=== PATIENT | male | born 1980 | race Caucasian/White ===

== ENCOUNTER 2017-12-18 17:58 | Emergency (ER) | payer OTHER ==
[~2017-12-18] VITALS: Ht 193 cm; Wt 161.5 kg
--- NOTE | 2017-12-18 18:27 | PHYS DOC ---
Adult General Chief Complaint Chief Complaint: LACERATION/AVULSION HPI HPI Patient is a 37 year old male who presents with complaint of laceration to the right thumb. The patient states that he was using a kitchen knife to cut cabbage when the accident occurred. Patient states that he cut into his thumb tip. Patient denies loss of function to the affected digit. Patient states that his tetanus booster has not been given in the last 5 years. Patient denies any significant health problems. Review of Systems Review of Systems Constitutional: Denies fever or chills [] Musculoskeletal: Laceration to left thumb tip[] Integument: Denies rash or skin lesions [] Neurologic: Denies headache, focal weakness or sensory changes [] All other systems were reviewed and found to be within normal limits, except as documented in this note. Allergies Allergies No known drug allergies Physical Exam Physical Exam Constitutional: Alert, afebrile, appears in mild discomfort. [] HENT: Normocephalic, atraumatic, bilateral external ears normal, oropharynx moist, no oral exudates, nose normal. [] Skin: Warm, dry, no erythema, no rash. [] Extremities: Curvilinear laceration through the lateral aspect of the right thumb tip extending through nail bed, no cyanosis, no clubbing, ROM intact, no edema. [] Neurologic: Alert and oriented X 3, normal motor function, normal sensory function, no focal deficits noted. [] Current Patient Data Vital Signs Vital Signs Date Time Temp Pulse Resp B/P (MAP) Pulse Ox O2 Delivery O2 Flow Rate FiO2 12/18/17 18:31 98.7 107 18 96 Room Air Lab Results Current Medications Medications (Trade) Dose Ordered Sig/Rafa Route PRN Reason Start Time Stop Time Status Last Admin Dose Admin Lidocaine HCl 20 ml 1X ONCE IJ 12/18/17 18:30 12/18/17 18:54 DC 12/18/17 18:47 Tetanus/ Diphtheria Toxoids Adsorbed (Tenivac Vial) 0.5 ml ONCE ONCE VAX IM 12/18/17 19:30 12/18/17 19:34 DC Diphtheria/ Tetanus/Acell Pertussis (Boostrix) 0.5 ml ONCE ONCE VAX IM 12/18/17 19:45 12/18/17 19:46 EKG EKG Not performed[] Radiology/Procedures Radiology/Procedures Not performed[] Course & Med Decision Making Course & Med Decision Making Pertinent Labs and Imaging studies reviewed. (See chart for details) The patient's laceration was repaired as outlined in the procedure note. Advised patient to follow-up in 10-14 days for reevaluation and removal of sutures. Advised that this could be done by the patient's primary doctor. Recommended return emergency department for any worsening symptoms. Patient voiced understanding and in agreement with treatment plan. Patient's tetanus was updated in the emergency department. Dragon Disclaimer Dragon Disclaimer This electronic medical record was generated, in whole or in part, using a voice recognition dictation system. Laceration Repair Lac Repair Indication: Thumb laceration Procedure: The patient was placed in the appropriate position and anesthesia around the laceration was achieved with injection of 2% lidocaine at the base of the thumb through digital block technique. The area was then irrigated copiously with tap water and prepped with Betadine. The laceration was closed using 4-0 Ethilon simple and a ruptured sutures. The wound area was then dressed with Telfa and Kerlix. Total repaired wound length: 3.5 cm. Other Items: Total suture count: 6 The patient tolerated the procedure without difficulty. Complications: None. Departure Departure: Impression: Primary Impression: Thumb laceration Patient Instructions: Fingertip Laceration Additional Instructions: Follow-up with your primary doctor in 10-14 days for removal of your sutures. Return to the emergency department for any worsening symptoms. Problem Qualifiers Primary Impression: Thumb laceration Encounter type: initial encounter Damage to nail status: with damage Foreign body presence: without foreign body Laterality: right Qualified Codes: S61.111A - Laceration without foreign body of right thumb with damage to nail, initial encounter SADAF JOSEPH MD Dec 18, 2017 18:27
[2017-12-18] MEDS ORDERED: LIDOCAINE 2% 20 ML VIAL. IJ ONE (18:30)
[2017-12-18] MEDS ORDERED: TETANUS AND DIPHTHERIA TOX/PF 0.5 ML VIAL. VAX IM ONE (19:30)
[2017-12-18] MEDS ORDERED: DIPHTH,PERTUSS(ACELL),TET TOX 0.5 ML DISP.SYRIN. VAX IM ONE (19:45)
[2017-12-18 20:00] VITALS: BP 173/70
== END 2017-12-18 20:00 | disposition home or self-care (01) ==
LOC: ER 17:58
DX: S61.011A Laceration without foreign body of right thumb without damage to nail, initial encounter (principal); W26.0XXA Contact with knife, initial encounter; Y93.89 Activity, other specified; Y99.8 Other external cause status; Y92.89 Other specified places as the place of occurrence of the external cause
CPT/HCPCS: 12002; 90471; 90715; 99283-25; J2001

== ENCOUNTER → 2018-08-24 | Outpatient (CLI) | payer SELFPAY ==
--- NOTE | 2018-08-24 14:16 | RAD ---
Left axillary ultrasound, 08/24/2018: HISTORY: Pain, left axillary lump The area of clinical concern in the left axilla was carefully scanned. There are streaky subcutaneous hypoechoic areas compatible with nonspecific edema. No discrete well-defined fluid collection or mass is identified. The appearance could be due to cellulitis or hemorrhage. Clinical correlation suggested. If symptoms persist, sonographic follow-up may be helpful in excluding abscess development. Electronically signed by: Nav Felder MD (08/24/2018 2:12 PM) [facility]
== END | disposition home or self-care (01) ==
LOC: US 09:46
PROVIDERS: ATTEND Physician Assistant Medical
DX: R22.32 Localized swelling, mass and lump, left upper limb (principal)
CPT/HCPCS: 76881